=== PATIENT | female | born 1980 | race Caucasian/White ===

== ENCOUNTER 2017-10-21 10:39 | Outpatient (CLI) | payer OTHER ==
[2017-10-24] MEDS ORDERED: SYNTHROID50 MCG (16:02)
[2017-10-24] MEDS ORDERED: VITAMINA C (16:02)
== END 2017-10-21 17:00 | disposition home or self-care (01) ==
LOC: MAMO-SONO 10:39
DX: Z12.31 Encounter for screening mammogram for malignant neoplasm of breast (principal); N64.82 Hypoplasia of breast

== ENCOUNTER 2017-10-22 13:16 | Outpatient (CLI) | payer OTHER ==
[2017-10-24] MEDS ORDERED: SYNTHROID50 MCG (16:02)
[2017-10-24] MEDS ORDERED: VITAMINA C (16:02)
== END 2017-10-22 18:04 | disposition home or self-care (01) ==
LOC: SONOGRAMA 13:16
DX: E04.8 Other specified nontoxic goiter (principal)

== ENCOUNTER 2017-11-04 07:10 | Day surgery (SDC) | payer OTHER ==
[~2017-11-04 07:10] MED LIST: SYNTHROID50 MCG; VITAMINA C
== END 2017-11-04 12:30 | disposition home or self-care (01) ==
LOC: CIR.AMB 07:10
DX: N64.82 Hypoplasia of breast (principal)